=== PATIENT | female | born 1975 | race Caucasian/White ===

== ENCOUNTER 2021-03-02 07:31 | Emergency (ER) | payer MEDICAID, SELFPAY ==
--- NOTE | ~2021-03-02 | XR_ITS ---
EXAMINATION: XR ANKLE, RIGHT CLINICAL INFORMATION: Pain COMPARISON: None TECHNIQUE: AP, lateral, and mortise views of the right ankle. FINDINGS: Bone alignment is normal. No fracture or dislocation is seen. The ankle mortise is normal. There is lateral soft tissue swelling. XR/XR ankle RT min 3V IMPRESSION: No fracture seen. Lateral soft tissue swelling.
[2021-03-02 08:02] VITALS: BP 160/105; PULSE 94; RESP 18; TEMP 36.8; O2SAT 98; BMI 31.8
--- NOTE | 2021-03-02 08:11 | ED_ITS ---
HPI - Extremity Injury (Lower) General Chief Complaint: Extremity Injury, Lower Stated Complaint: right ankle injury Time Seen by Provider: 03/02/21 07:45 Source: patient Mode of arrival: ambulatory Limitations: no limitations History of Present Illness HPI Narrative: This is a 45-year-old female with no significant medical history presenting to the emergency department with 4 days of ankle swelling, and pain status post rolling her ankle on Monday. Patient tells me she was walking down the stairs she missed the last step, and rolled her ankle out words. She immediately started experiencing pain and swelling to her in tired ankle. No previous surgeries or procedures on the right ankle. She denies numbness, tingling, excruciating pain. Sensation and motor intact. MD complaint: ankle injury Onset (ago): day(s) (4) Type of Injury: eversion Severity: moderate Severity scale (1-10): 6 Relieving factors: nothing Exacerbating factors: nothing Other symptoms: none Related Data Allergies Allergy/AdvReac Type Severity Reaction Status Date / Time fluticasone [From FLONASE] Allergy Unknown HEADACHE Verified 03/02/21 08:01 Review of Systems Review of Systems: Constitutional : No Fever, No Chills, Cardiovascular : No Chest Pain, No SOB Respiratory : No Dyspnea Gastrointestinal : No abdominal pain Musculoskeletal : + Joint Swelling, + joint pain Skin : No rash, no skin laceration Neuro : No Weakness, No Numbness Psych : No SI/HI Yes all other systems are reviewed and are negative [facility] Past Medical History Attestation statement: The following information was validated with the patient. Source: old records reviewed and nursing notes reviewed Social History Social History Advance Directives: No Advance Directives Information Provided: No Physical Exam Vital Signs: Vital Signs: Last Vital Signs Temp 98.3 F 03/02/21 08:02 Pulse 94 03/02/21 08:02 Resp 18 03/02/21 08:02 BP 160/105 H 03/02/21 08:02 Pulse Ox 98 03/02/21 08:02 BMI result Body Mass Index 31.8 VSS Appearance: Alert.? Oriented X3.? No acute distress.? Head: Normocephalic, atraumatic, no step-offs or deformities Eyes: Pupils equal, round and reactive to light.? ENT: Pharynx normal.? Neck: Normal inspection.? Neck supple.? CVS: Normal heart rate and rhythm.? Pulses normal.? Respiratory: No respiratory distress.? Breath sounds normal.? Abdomen: Soft and nontender.? Skin: Skin warm and dry.? Normal skin color.? Normal skin turgor.? Extremities: No lower extremity edema.? No calf ttp. 5/5 strength to bilateral upper and lower extremities + full rom b/l however pain w/ ROM of right ankle. +right ankle swollen w/ ecchymosis + left ankle normal. Back: No midline tenderness, no C-spine tenderness, full range of motion, no CVA tenderness bilaterally Neuro: Oriented X 3.? No motor deficit.? No sensory deficit. Course Reevaluation(s) Reevaluation #1: X-ray negative, I feel comfortable with discharge home. Patient was given an Aircast and crutches. I have advised to return with new or worsening symptoms, and follow-up with orthopedics if no improvement in 2 weeks. MDM - Extremity Injury (Lower) MDM Narrative Medical decision making narrative: 08 45 yo F presents w/ right ankle pain and swelling s/p rolling her ankle 4 days ago. PE significant for swelling and slight ecchymosis to the right ankle. She has full range of motion bilaterally, she reports discomfort with range of motion of right ankle. Plan at this time is to obtain an x-ray of the right ankle Medical Records Attestation: I reviewed the patient's medical records. Lab Data Attestation: I reviewed the patient's lab results. Imaging Data Right ankle Xray: Attestation: I personally reviewed and interpreted this imaging study as follows: Radiologist's impression: FINDINGS: Bone alignment is normal. No fracture or dislocation is seen. The ankle mortise is normal. There is lateral soft tissue swelling.? XR/XR ankle RT min 3V IMPRESSION: No fracture seen. Lateral soft tissue swelling. Critical Care Time Critical Care Time Critical Care Time: No Discharge Plan Discharge Clinical Impression: Ankle sprain and strain Patient Disposition: Home, Self-Care Instructions: Ankle Sprain (ED), Crutch Instructions (ED), Ankle Stirrup Splint (ED), R.I.C.E. Treatment (ED), Ice Pack Application (ED) Additional Instructions: Take your medications as prescribed. If you were prescribed antibiotics today, it is important that you take your medication to their entirety, do not skip any doses, do not finish them early. Follow-up with your primary care provider this week. Follow-up with orthopedics if no improvement in 2 weeks Take ibuprofen every 6 hours, Tylenol every 4 as needed for pain. Return to the emergency department with new or worsening symptoms. In case of emergency call 911 Your x-ray at this time does not show any evidence of fracture does show soft tissue swelling Referrals: Rosetta Walters NP [Primary Care Provider] - 2 days Stand Alone Forms: Work/School Release
== END 2021-03-02 09:12 | disposition home or self-care (01) ==
LOC: HO.ED 08:15
PROVIDERS: Emergency Provider Emergency Medicine; PCP Nurse Practitioner Family
DX: S93.401A Sprain of unspecified ligament of right ankle, initial encounter (principal); S96.911A Strain of unspecified muscle and tendon at ankle and foot level, right foot, initial encounter; X50.1XXA Overexertion from prolonged static or awkward postures, initial encounter; Y93.89 Activity, other specified; Y92.9 Unspecified place or not applicable; Y99.9 Unspecified external cause status
CPT/HCPCS: 73610; 99283

== ENCOUNTER 2021-11-24 07:49 | Emergency (ER) | payer MEDICAID, SELFPAY ==
[2021-11-24 07:58] VITALS: BP 148/86; PULSE 82; RESP 18; TEMP 36.4; O2SAT 99; BMI 31.8
== END 2021-11-24 09:23 | disposition left against medical advice (07) ==
LOC: HO.ED 09:23
PROVIDERS: Emergency Provider Emergency Medicine; PCP Nurse Practitioner Family
DX: Z20.2 Contact with and (suspected) exposure to infections with a predominantly sexual mode of transmission (principal)
CPT/HCPCS: 99281

== ENCOUNTER 2022-09-05 08:08 | Outpatient (REF) | payer OTHER, SELFPAY ==
[2022-09-05 14:00] LABS: Alanine Aminotransferase 18 U/L (0-31); Albumin Level 3.8 g/dL (3.5-5.0); Alkaline Phosphatase 55 U/L (39-117); Anion Gap 15 (12-20); Aspartate Amino Transferase 17 U/L (5-31); Bilirubin Total 0.3 mg/dL (0.0-1.0); Blood Urea Nitrogen 10 mg/dL (9-16); Calcium 9.3 mg/dL (8.4-10.2); Carbon Dioxide 21 mmol/L (22-29); Chloride 109 mmol/L (96-108); Cholesterol 218 mg/dL; Estimated Glomerular Filt Rate > 60; Glucose Random 94 mg/dL (60-115); HDL Cholesterol 54 mg/dL; LDL Cholesterol Calculated 137 mg/dl; Potassium 3.7 mmol/L (3.3-5.1); Sodium 141 mmol/L (135-145); Total Protein 6.8 g/dL (6.5-8.0); Triglycerides 135 mg/dL
[2022-09-05 14:14] LABS: TSH reflex Free T4 3.07 uIU/mL (0.32-4.0)
== END 2022-09-05 08:09 | disposition home or self-care (01) ==
LOC: HO.LAB 08:08
PROVIDERS: PCP Nurse Practitioner Family; Visit Provider Nurse Practitioner Family
DX: Z00.00 Encounter for general adult medical examination without abnormal findings (principal)
CPT/HCPCS: 36415; 80053; 80061; 81003; 84443; 85025

== ENCOUNTER 2022-12-07 19:09 | Emergency (ER) | payer OTHER, SELFPAY ==
[2022-12-07 19:12] VITALS: BP 149/100; PULSE 106; RESP 20; TEMP 36.4; O2SAT 97; BMI 31.9
--- NOTE | 2022-12-07 19:40 | ED.WOUNDLAC ---
HPI - Wound/Laceration General Chief Complaint: Wound/Laceration Stated Complaint: insect bite on hand? Time Seen by Provider: 12/07/22 19:17 Related Data Allergies Allergy/AdvReac Type Severity Reaction Status Date / Time fluticasone [From FLONASE] Allergy Unknown HEADACHE Verified 12/07/22 19:12 [facility] Social History Social History Advance Directives: No Advance Directives Information Provided: No Physical Exam Vital Signs: Vital Signs: Last Vital Signs Temp 97.5 F 12/07/22 19:12 Pulse 106 H 12/07/22 19:12 Resp 20 12/07/22 19:12 BP 149/100 H 12/07/22 19:12 Pulse Ox 97 12/07/22 19:12 O2 Del Method Room Air 12/07/22 19:12 BMI result Body Mass Index 31.9 Course Course Course Narrative: This is an RME: Additional HPI, ROS, PE not included below will be deferred to primary provider. This is a 47-year-old female presenting to the emergency department complaints of insect bite to her right hand. She is unsure what bit her hand. Patient had increased swelling to the dorsum of her right wrist. With surrounding edema noted. Moderate tenderness to palpation. No fevers or chills. Spoke to my attending physician, patient needs course of antibiotics without any labs. Upon returning back to triage room, patient eloped from the emergency department prior to receiving full treatment and discharge. Discharge Plan Discharge Clinical Impression: Abscess Patient Disposition: Left W/O Completing Treatment Discharge Date/Time: 12/07/22 19:56
== END 2022-12-07 19:56 | disposition left against medical advice (07) ==
PROVIDERS: Emergency Provider Emergency Medicine; PCP Nurse Practitioner Family
DX: L02.511 Cutaneous abscess of right hand (principal)
CPT/HCPCS: 99281

== ENCOUNTER 2022-12-09 10:20 | Emergency (ER) | payer OTHER, SELFPAY ==
[2022-12-09 10:22] VITALS: BP 136/100; PULSE 109; RESP 17; TEMP 36.5; O2SAT 97; BMI 31.9
--- NOTE | 2022-12-09 10:28 | ED.GENADULT ---
HPI - General Adult General Chief complaint: Animal Bite Stated complaint: spider bite Time Seen by Provider: 12/09/22 10:27 Source: patient Mode of arrival: ambulatory Limitations: no limitations History of Present Illness HPI narrative: Patient is a 47 year old assigned female at with a medical history of HTN presenting to the emergency department today with a possible spider bite to the right wrist. Patient states that over the last 4 days she has noticed swelling, warmth, and redness to the back side of her right wrist. Patient states that she thought she was bit by a spider but is unsure. Patient denies any dizziness, lightheadedness, abdominal pain, nausea, vomiting, fever, chills, blurry vision, double vision, loss of vision, chest pain, difficulty breathing, shortness of breath, back pain, night sweats, pain with urination, increased urinary frequency, increased urinary urgency, blood in her urine or stool, syncope or a near syncopal episode, recent trauma or falls, bowel incontinence, bladder incontinence, bowel retention, bladder retention, or any other complaints at this time. Onset (ago): day(s) (3-4) Location: right and upper extremity Radiation: non-radiation Severity: mild Severity scale (1-10): 4 Quality: aching and dull Pain Consistency: constant Relieving factors: none Exacerbating factors: none Associated symptoms: denies other symptoms Treatments prior to arrival: none Related Data Previous Rx's Medication Instructions Recorded cephalexin 500 mg capsule 500 mg PO Q6H 7 days #28 caps 12/09/22 naproxen 500 mg tablet 500 mg PO BID 7 days #14 tabs 12/09/22 Allergies Allergy/AdvReac Type Severity Reaction Status Date / Time fluticasone [From FLONASE] Allergy Unknown HEADACHE Verified 12/07/22 19:12 Review of Systems Constitutional: Constitutional: Reports no additional constitutional complaints, Denies chills, Denies fever(s) and Denies night sweats Eyes: Eyes: Reports no additional eye complaints, Denies blurry vision, Denies change in vision, Denies diplopia, Denies eye discharge, Denies loss of vision and Denies eye pain ENT: Denies dizziness Cardiovascular: Cardiovascular: Reports no additional cardiovascular complaints, Denies chest pain, Denies lightheadedness, Denies Loss of Consciousness and Denies dyspnea Respiratory: Respiratory: Reports no additional respiratory complaints and Denies dyspnea Gastrointestinal: Gastrointestinal: Reports no additional gastrointestinal complaints, Denies abdominal pain, Denies melena, Denies hematochezia, Denies change in bowel habits and Denies change in stool character Genitourinary: Genitourinary: Denies hematuria, Denies urinary frequency, Denies dysuria, Denies urinary incontinence, Denies urinary hesitancy and Denies urinary urgency Musculoskeletal: Musculoskeletal: Reports no additional musculoskeletal complaints, Denies numbness and Denies tingling Comments: warmth, redness, and swollen area to the back of right wrist Neurologic: Denies dizziness, Denies loss of vision, Denies numbness and Denies tingling Psychiatric: Psychiatric: Reports no additional psychiatric complaints Endocrine: Endocrine: Reports no additional endocrine complaints Hematologic/Lymphatic: Hematologic/Lymphatic: Reports no additional hematologic/lymphatic complaints Allergic/Immunologic: Allergic/Immunologic: Reports no additional allergic/immunologic complaints PMFSH Past Medical History Attestation statement: The following information was validated with the patient. Source: old records reviewed and nursing notes reviewed Social History Social History Advance Directives: No Advance Directives Information Provided: No Physical Exam ED Vital Signs: Vital Signs - 24 hr 12/09/22 10:22 Temperature 97.7 F Pulse Rate 109 H Respiratory Rate 17 Blood Pressure 136/100 H Pulse Oximetry 97 Oxygen Delivery Method Room Air BMI result Body Mass Index 31.9 Const General: cooperative, no acute distress, alert and awake Nutritional Appearance: well nourished Orientation/consciousness: patient oriented x3 Limitations: no limitations [facility] Head: Yes normal to inspection and Yes atraumatic Ears: hearing grossly normal bilaterally and external ears normal General nose exam: Normal external nose present, no nasal discharge noted and no epistaxis Face and sinus: Yes normal facial exam, No abrasion and No laceration Mouth: Normal oral and palatal mucosa present, no drooling and no muffled voice Eyes General: appearance normal, both eyes and all related structures Periorbital: periorbital findings normal Eyelids: Yes eyelids normal Conjunctivae: conjunctivae normal Pupils: Equal, round and reactive pupils present EOM: EOMs intact bilaterally Neck Neck: Yes normal visual inspection, Yes full ROM and Yes no lymphadenopathy Chest Chest palpation & inspection: normal inspection of the chest Resp Effort & Inspection: normal respiratory effort and able to speak in complete sentences GI Inspection: Yes normal to inspection Neuro General: patient oriented x3 and moves all extremities Cranial nerves: Yes Equal, round and reactive pupils present Cognition (Neuro): normal cognition Motor exam (neuro): 5/5 motor strength present throughout Sensory Exam: Normal double simultaneous stimulation for sensation Coordination: [id number] test normal Extrem General: Yes full ROM and Yes capillary refill normal Elbow/forearm/wrist images: 1. warmth, erythema, minimal fluctuance felt Psych Appearance: grossly normal Mental Status: mental status grossly normal Affect: normal affect Attitude: cooperative Thought process: Normal thought process present Thought content: Normal thought content present Insight: Good insight present (Psych) Medications Administered Discontinued Medications Generic Name Dose Route Start Last Admin Trade Name Alexandra PRN Reason Stop Dose Admin Hydrocodone Bitart/Acetaminophen 1 tab 12/09/22 11:02 12/09/22 11:06 Hydrocodone Bit/Acetam 5/325 Tablet PO 12/09/22 11:03 1 tab ONCE ONE Administration Lidocaine HCl 10 ml 12/09/22 10:29 12/09/22 10:52 Lidocaine Hcl 1 % Mpf 5 Ml Vial SUBCUT 12/09/22 10:30 10 ml ONCE ONE Administration Procedures Abscess I/D Site: upper extremity Side (if applicable): right Local Anesthetic: lidocaine 1% Amount of anesthesia used (mL): 4 Technique: incised with blade Amount of fluid expressed (mL): 5 Sent for culture/gram staining?: No Irrigation: No Packing used?: none Medical Decision Making Medical Decision Making MDM Narrative: Patient is a 47 year old assigned female at with a history of HTN presenting to the emergency department today with an area of warmth, redness, and swelling to the right wrist. Patient's physical exam was as noted in the physical exam portion of this note. I explained my physical exam findings to the patient. I answered all questions asked by the patient. The area was incised and drained however, there were still firm parts present - concerning for cyst. I stressed the importance of the patient taking her medication as prescribed. I stressed the importance of the patient following up with her primary care provider and a general surgeon. I stressed the importance of the patient returning to the emergency department immediately if her symptoms were to worsen or if she were to develop any dizziness, shortness of breath, difficulty breathing, chest pain, blurry vision, loss of vision, nausea, vomiting, abdominal pain, fever, chills, back pain, or any other complaints. Patient verbalized agreement and understanding with this treatment plan and discharge. Differential Diagnosis Differential Diagnoses: The differential diagnosis associated with the presentation includes Cyst Abscess Prescription Management I considered prescription management with: Pain Medication (patient prescribed pain medication.) and Antibiotic (Patient prescribed an antibiotic.) Chronic Conditions Patient?s care impacted by: Hypertension Discharge Plan Discharge Clinical Impression: Abscess, Cyst of skin Patient Disposition: Home, Self-Care Instructions: Abscess (ED), Cyst (ED) Additional Instructions: Follow up with your primary care provider and a general surgeon. Return to the emergency department immediately if your symptoms worsen or if you develop any dizziness, shortness of breath, difficulty breathing, chest pain, blurry vision, loss of vision, nausea, vomiting, abdominal pain, fever, chills, back pain, or any other complaints. Prescriptions: New cephalexin 500 mg capsule 500 mg PO Q6H 7 Days Qty: 28 0RF naproxen 500 mg tablet 500 mg PO BID 7 Days Qty: 14 0RF Referrals: [facility] [Provider Group] (Call to establish and follow up with a general surgeon.) Rosetta Walters NP [Primary Care Provider] - Interventions: ED Discharge Assessment Last Done: 12/09/22 11:44 Print Language: Chadian
[2022-12-09] MEDS: Lidocaine HCl 1 % MPF 5 ML VIAL 10 ML SUBCUT (10:52)
[2022-12-09] MEDS: HYDROcodone Bit/Acetam 5/325 TABLET 1 TAB PO (11:06)
== END 2022-12-09 11:46 | disposition home or self-care (01) ==
PROVIDERS: Emergency Provider Student in an Organized Health Care Education/Training Program; PCP Nurse Practitioner Family
DX: L02.413 Cutaneous abscess of right upper limb (principal); L72.9 Follicular cyst of the skin and subcutaneous tissue, unspecified
CPT/HCPCS: 10060; 99283; 99284

== ENCOUNTER 2023-08-11 22:54 | Emergency (ER) | payer OTHER, SELFPAY ==
[2023-08-11] MEDS: diphenhydrAMINE HCL 50 MG/ML VIAL IM (23:03)
[2023-08-11] MEDS: LORazepam 2 MG/ML VIAL IM (23:03)
[2023-08-11] MEDS: Haloperidol Lactate 5 MG/ML VIAL IM (23:03)
[2023-08-11 23:16] VITALS: RESP 16; BMI 33.3
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
[2023-08-12 00:34] LABS: MANUAL DIFF FLAG NO
[2023-08-12 00:37] LABS: Hemoglobin 13.5 g/dl (12.0-16.0); Red Blood Count 4.45 X10*6/uL (4.20-5.50); White Blood Count 6.1 X10*3/uL (4.8-10.8)
[2023-08-12 00:38] LABS: Basophils Percent Auto 0.5 % (0-2); Eosinophils Percent Auto 0.5 % (0-4); Hematocrit 38.1 % (37.0-47.0); Imm Gran Abs Auto 0.02 X10*3/uL (0.00-0.03); Imm Gran Pct Auto 0.3 % (0.0-0.4); Lymphocytes Absolute Auto 1.9 X10*3/uL (1.2-4.9); Lymphocytes Percent Auto 31.2 % (20-40); Mean Corpuscular HGB Conc 35.4 g/dl (31.0-35.0); Mean Corpuscular Hemoglobin 30.3 pg (27.0-33.0); Mean Corpuscular Volume 85.6 fL (80.0-98.0); Mean Platelet Volume 8.2 fL (9.4-12.3); Monocytes Absolute Auto 0.5 X10*3/uL (0.1-1.2); Monocytes Percent Auto 7.8 % (2-11); Neutrophils Absolute Auto 3.7 x10*3/uL (2.0-8.3); Neutrophils Percent Auto 59.7 % (45-73); Platelet Count 196 X10*3/uL (160-400); Red Cell Distribution Width 12.4 % (11.0-16.0)
[2023-08-12 00:46] LABS: Ethanol 182 mg/dL
[2023-08-12 00:49] LABS: Alanine Aminotransferase 34 U/L (0-31); Albumin Level 4.3 g/dL (3.5-5.0); Alkaline Phosphatase 65 U/L (39-117); Anion Gap 17 (12-20); Aspartate Amino Transferase 25 U/L (5-31); Bilirubin Total 0.4 mg/dL (0.0-1.0); Blood Urea Nitrogen 10 mg/dL (9-16); Calcium 9.5 mg/dL (8.4-10.2); Carbon Dioxide 21 mmol/L (22-29); Chloride 108 mmol/L (96-108); Creatinine Clr Calc Pharmacy 91.4; Estimated Glomerular Filt Rate > 60; Glucose Random 91 mg/dL (60-115); Potassium 3.3 mmol/L (3.3-5.1); Sodium 143 mmol/L (135-145); Total Protein 7.6 g/dL (6.5-8.0)
[2023-08-12 01:48] LABS: Acetaminophen LAB < 3 mcg/mL (<30); Salicylate < 5.0 mg/dL (15-30)
--- NOTE | 2023-08-12 03:11 | PC.NURSE ---
Took over care From RN Eva at 3am, pt sleeping at this time.
[2023-08-12 05:50] VITALS: BP 141/94; PULSE 114; TEMP 36.4; O2SAT 97
--- NOTE | 2023-08-12 07:12 | PC.NURSE ---
Assumed care of patient at 0645, patient currently sitting at desk eating breakfast, appears to be in no apparent distress, calm and cooperative, offering no complaints. Pending care team eval at this time
[2023-08-12] MEDS: Gabapentin 400 MG CAPSULE 800 MG PO (08:00)
[2023-08-12] MEDS: amLODIPine Besylate 5 MG TABLET PO (08:00)
[2023-08-12] MEDS: LORazepam 0.5 MG TABLET PO (08:00)
[2023-08-12] MEDS: Omeprazole 20 MG CAPSULE.DR PO (08:01)
[2023-08-12 08:16] LABS: UPreg QC Valid YES; Urine Pregnancy NEGATIVE (NEGATIVE)
[2023-08-12 08:17] LABS: Appearance Urine Clear; Color Urine Yellow; Glucose Urine UA Negative (Negative); Leukocyte Esterase Urine Negative (Negative); Nitrite Urine Negative (Negative); PH 5.5 (5.0-9.0); Specific Gravity - Urine 1.015 (1.005-1.025); Urine Blood Negative (Negative); Urine Ketones Negative (Negative); Urine Protein Negative (Neg-Trace)
[2023-08-12 08:22] LABS: Bacteria Urine None Seen (None Seen); Hyaline Casts Urine 0-2 /LPF (0-2); RBC Urine 0-2 /HPF (0-2); WBC Urine 0-5 /HPF (0-5)
[2023-08-12 08:31] LABS: Amphetamine Screen Urine Not Detected (Not Detect); Barbiturates, Urine Not Detected (Not Detect); Benzodiazepines Screen Urine Not Detected (Not Detect); Buprenorphine Scr Not Detected (Not Detect); Cannabinoid Screen Urine POSITIVE (Not Detect); Cocaine Screen Urine POSITIVE (Not Detect); Fentanyl, urine Not Detected (Not Detect); Methadone Screen, Urine Not Detected (Not Detect); Opiate Screen Urine Not Detected (Not Detect); Oxycodone Screen Urine Positive (Not Detect); Phencyclidine Screen Urine Not Detected (Not Detect)
[2023-08-12 08:44] VITALS: BP 142/84; PULSE 94; RESP 16; TEMP 37.1; O2SAT 97
[2023-08-12] MEDS: Naloxone HCl Nasal TAKE HOME 4 MG SPRAY 8 MG NOSTRILALT (08:50)
== END 2023-08-12 08:50 | disposition home or self-care (01) ==
PROVIDERS: Internal Medicine; Emergency Provider Emergency Medicine Emergency Medical Services
DX: F06.8 Other specified mental disorders due to known physiological condition (principal); R45.1 Restlessness and agitation; F10.920 Alcohol use, unspecified with intoxication, uncomplicated; Y90.6 Blood alcohol level of 120-199 mg/100 ml; Z72.89 Other problems related to lifestyle; Z63.4 Disappearance and death of family member; Z79.899 Other long term (current) drug therapy
CPT/HCPCS: 36415; 80053; 80143; 80179; 80307; 81001; 81025; 85025; 96372; 99284; J1200; J1630; J2060; S9485